=== PATIENT | female | born 2000 | race Asian ===

== ENCOUNTER 2018-10-29 16:36 | Emergency (ER) | payer SELFPAY ==
[~2018-10-29] VITALS: Ht 165.1 cm; Wt 90.7 kg
[2018-10-29 17:35] VITALS: BP 122/66
[2018-10-29 17:49] LABS: BILIRUBIN,URINE NEGATIVE (NEG); CLARITY,URINE CLEAR; COLOR,URINE YELLOW; NITRITE,URINE NEGATIVE (NEG); PH,URINE 5.5; PROTEIN,URINE NEGATIVE (NEG-TRACE); UROBILINOGEN,URINE 0.2 mg/dL (0.2 mg/dL)
[2018-10-29 17:55] LABS: BACTERIA,URINE MANY /HPF (0-FEW); SQUAMOUS EPITHELIAL CELL,UR MOD /LPF
[2018-10-29 17:56] LABS: RBC,URINE 20-40 /HPF (0-2)
--- NOTE | 2018-10-29 18:35 | PHYS DOC ---
Past Medical History Past Medical History: No Pertinent History (ANEUDY QUINONES APRN) Past Surgical History: No Surgical History (ANEUDY QUINONES APRN) Alcohol Use: None Drug Use: None (ANEUDY QUINONES APRN) Adult General Chief Complaint Chief Complaint: MULTIPLE COMPLAINTS [facility] HPI Patient is a 18 year old female with no significant medical history who presents to the ED today with complaints of mild lower back pain, symptoms began 2 days. Patient states the pain is uncertain movements. Denies anything specifically relieving the pain. She states the pain is intermittent. Denies any nausea vomiting. She states she also had a mild headache intermittently for 2 days. States she has had similar headaches before. She states she does not know if she is or not. Denies any trauma. Denies pain radiating to bilateral lower extremities. Denies any loss of bowel bladder function. (ANEUDY QUINONES APRN) Review of Systems Review of Systems Constitutional: Denies fever or chills [] Eyes: Denies change in visual acuity, redness, or eye pain [] HENT: Denies nasal congestion or sore throat [] Respiratory: Denies cough or shortness of breath [] Cardiovascular: No additional information not addressed in HPI [] GI: Denies abdominal pain, nausea, vomiting, bloody stools or diarrhea [] : Denies dysuria or hematuria [] Musculoskeletal: Reports low back pain. Integument: Denies rash or skin lesions [] Neurologic: Reports headache, denies, focal weakness or sensory changes [] All other systems were reviewed and found to be within normal limits, except as documented in this note. (ANEUDY QUINONES APRN) Current Medications Current Medications Current Medications Medications (Trade) Dose Ordered Sig/Mauro Start Time Stop Time Status Last Admin Dose Admin Acetaminophen/ Hydrocodone Bitart (Lortab 5/325) 1 tab 1X ONCE 10/29/18 19:00 10/29/18 19:01 DC 10/29/18 18:58 1 TAB Cyclobenzaprine HCl (Flexeril) 10 mg 1X ONCE 10/29/18 19:00 10/29/18 19:01 DC 10/29/18 18:58 10 MG Naproxen (Naprosyn) 500 mg 1X STAT 10/29/18 18:47 10/29/18 18:49 DC 10/29/18 18:58 500 MG (ZHENG ODELL DO) Allergies Allergies Allergies Coded Allergies Type Severity Reaction Last Updated Verified No Known Drug Allergies 10/29/18 No (ODELL,ZHENG Ryley FUENTES) Physical Exam Physical Exam Constitutional: Well developed, well nourished, no acute distress, non-toxic appearance. [] HENT: Normocephalic, atraumatic, bilateral external ears normal, oropharynx moist, no oral exudates, nose normal. [] Eyes: PERRLA, EOMI, conjunctiva normal, no discharge. [] Neck: Normal range of motion, no tenderness, supple, no stridor. [] Cardiovascular:Heart rate regular rhythm, no murmur [] Lungs & Thorax: Bilateral breath sounds clear to auscultation [] Abdomen: Bowel sounds normal, soft, no tenderness, no masses, no pulsatile masses. [] Skin: Warm, dry, no erythema, no rash. [] Back: No tenderness, no CVA tenderness. [] Extremities: No tenderness, no cyanosis, no clubbing, ROM intact, no edema. [] Neurologic: Alert and oriented X 3, normal motor function, normal sensory function, no focal deficits noted. [] Psychologic: Affect normal, judgement normal, mood normal. [] (ANEUDY QUINONES APRN) Current Patient Data Vital Signs Vital Signs Date Time Temp Pulse Resp B/P (MAP) Pulse Ox O2 Delivery O2 Flow Rate FiO2 10/29/18 17:35 98.4 82 18 122/66 (84) 97 Room Air 98.4 (ODELLZHENG Ryley FUENTES) Lab Values Laboratory Tests Test 10/29/18 17:30 10/29/18 17:38 Urine Collection Type Unknown Urine Color Yellow Urine Clarity Clear Urine pH 5.5 Urine Specific [place] 1.025 Urine Protein Negative mg/dL (NEG-TRACE) Urine Glucose (UA) Negative mg/dL (NEG) Urine Ketones (Stick) Trace mg/dL (NEG) Urine Blood Moderate (NEG) Urine Nitrite Negative (NEG) Urine Bilirubin Negative (NEG) Urine Urobilinogen Dipstick 0.2 mg/dL (0.2 mg/dL) Urine Leukocyte Esterase Negative (NEG) Urine RBC 20-40 /HPF (0-2) Urine WBC 1-4 /HPF (0-4) Urine Squamous Epithelial Cells Mod /LPF Urine Bacteria Many /HPF (0-FEW) Urine Mucus Marked /LPF POC Urine HCG, Qualitative Hcg negative (Negative) (ZHENG ODELL DO) EKG EKG [] (ANEUDY QUINONES APRN) Radiology/Procedures Radiology/Procedures [] (ANEUDY QUINONES APRN) Course & Med Decision Making Course & Med Decision Making Pertinent Labs and Imaging studies reviewed. (See chart for details) This is a 18-year-old female patient presenting to the ED today with a headache and low back pain. Negative urine hCG. Urine analysis is negative for nitrates, leukocytes. Urine analysis is contaminated. Patient will be discharged with cyclobenzaprine, diclofenac and Medrol dose pack. Follow-up with PCP in 1-2 weeks. (ANEUDY QUINONES APRN) Dragon Disclaimer Dragon Disclaimer This electronic medical record was generated, in whole or in part, using a voice recognition dictation system. (ANEUDY QUINONES APRN) Departure Departure Impression: Primary Impression: Back pain Additional Impression: Headache Disposition: HOME, SELF-CARE Condition: STABLE Referrals: NO PCP (PCP) follow up in one week Patient Instructions: Back Pain, Adult, Headache, FAQs Additional Instructions: You were evaluated in the emergency room. Take the prescribed medications as ordered. Try and establish care with a primary care doctor and follow-up. Scripts Naproxen (NAPROXEN) 500 Mg Tablet.dr 1 TAB PO BID, #60 TAB 2 Refills Prov: ANEUDY QUINONES APRN 10/29/18 Cyclobenzaprine Hcl (CYCLOBENZAPRINE HCL) 10 Mg Tablet 1 TAB PO TID, #30 TAB Prov: ANEUDY QUINONES APRN 10/29/18 Methylprednisolone (MEDROL) 4 Mg Tab.ds.pk 1 PKG PO UD, #1 PKG Prov: ANEUDY QUINONES APRN 10/29/18 Attending Signature Attending Signature I have reviewed the PA/MANAGER MARKET's note and plan of care. I was available for con sultation as needed during the patient's visit in the emergency department. I agree with the clinical impression, plan, and disposition. (ZHENG ODELL DO) Problem Qualifiers Primary Impression: Back pain Back pain location: back pain in unspecified location Chronicity: acute Back pain laterality: bilateral Qualified Codes: M54.9 - Dorsalgia, unspecified Additional Impression: Headache Headache type: unspecified Headache chronicity pattern: unspecified pattern Intractability: not intractable Qualified Codes: R51 - Headache ANEUDY QUINONES APRN October 29, 2018 18:35 ZHENG ODELL DO October 30, 2018 11:13
[2018-10-29] MEDS ORDERED: NAPR500T8 PO (18:44)
[2018-10-29] MEDS ORDERED: CYCL10TA2 PO (18:44)
[2018-10-29] MEDS ORDERED: METH4TAB2 PO (18:44)
[2018-10-29] MEDS ORDERED: NAPROXEN 500 MG TABLET PO STA (18:47)
[2018-10-29] MEDS ORDERED: HYDROcodone/APAP 5/325MG 1 TAB TABLET PO ONE (19:00)
[2018-10-29] MEDS ORDERED: CYCLOBENZAPRINE 10 MG TABLET. PO ONE (19:00)
== END 2018-10-29 19:02 | disposition home or self-care (01) ==
LOC: ER 16:36
DX: M54.5 Low back pain (principal); R51 Headache
CPT/HCPCS: 81001; 81025; 99284